=== PATIENT | female | born 1960 | race Caucasian/White ===

== ENCOUNTER 2023-01-21 08:24 | Outpatient (CLI) | payer BC | END 2023-01-21 08:25 | disposition home or self-care (01) | LOC: SCSMRI 08:24 | PROVIDERS: ATTEND Neurological Surgery | DX: M54.50 Low back pain, unspecified (principal); M25.552 Pain in left hip; M47.816 Spondylosis without myelopathy or radiculopathy, lumbar region; S73.192A Other sprain of left hip, initial encounter; M67.854 Other specified disorders of tendon, left hip; M51.36 Other intervertebral disc degeneration, lumbar region | CPT/HCPCS: 72100 ==